=== PATIENT | female | born 1995 ===

== ENCOUNTER 2020-11-26 19:33 | Emergency (ER) | payer SELFPAY ==
[~2020-11-26] VITALS: Ht 170.2 cm; Wt 100.3 kg
[2020-11-26 19:46] VITALS: BP 122/74
[2020-11-26] MEDS ORDERED: BACITRACIN ZINC OINT 500U/GM, 0.9 GM ONE (22:16)
== END 2020-11-26 23:29 | disposition home or self-care (01) ==
LOC: ED 23:12
DX: R21 Rash and other nonspecific skin eruption (principal); L81.8 Other specified disorders of pigmentation
CPT/HCPCS: 99283